=== PATIENT | male | born 1985 | race Hispanic/Latino ===

== ENCOUNTER → 2024-03-31 | Outpatient (CLI) | payer MEDICAID ==
--- NOTE | 2024-04-04 18:01 | HMCSR ---
APPROVED REPORT EXAM: Two-dimensional and M-mode echocardiogram with Doppler and color Doppler. INDICATION ICD: Z01.810 Encounter for pre-procedural cardiovascular exam 2D Dimensions RVDd4.3 cmLVEF(%)55.3 (>50%)LVED Vol(simp.)158.0 mL IVSd1.1 (0.7-1.1cm)FS(%)29 %LVES Vol(simp.)85.0 mL LVDd6.5 (3.8-5.6cm)Ao Root(2D)3.2 (2.0-3.7cm)LVEF(%, simp.)46 % PWd1.1 (0.7-1.1cm)LVOT diam2.4 (1.8-2.4cm)LA ESV INDEX (BP)39.98 mL/m2 LVDs4.6 (2.5-4.0cm)IVC diam2.2 cm Aortic Valve AoV Vmax1.7 m/Gael Peak GR12.2 mmHgLVOT Vmax1.0 m/s AoV VTI0.4 mAo Mean GR6.5 mmHgLVOT VTI0.23 m MARTÍNEZ (VMAX)2.4 cm2AVA (VTI) 2.4 cm2 Mitral Valve MV E Rzne664.4 cm/sDECEL Lozx660 ms MV A Vmax89.7 cm/sP 1/2 T42 ms E/A ratio1.3MVA (PHT)5.2 cm2 MR Max PG47 mmHg TDI E/E' Ptdzri64.1E/E' Bogxgmd74.5 Pulmonary Valve PV Vmax1.1 m/sPV VTI0.29 mPV Mean GR3 mmHg PV Peak GR5.0 mmHg Tricuspid Valve TR Vmax3.1 m/sRAP (EST) 8 qwOdAHOI96.7 mmHg TR Peak GR37.7 mmHg Left Ventricle The left ventricle is moderately dilated. There is borderline to mild concentric left ventricular hyp ertrophy. LVEF is 45-50%. Stage II, diastolic dysfunction. Right Ventricle The right ventricle is mildly dilated. The right ventricular systolic function is normal. Atria The left atrium is mildly dilated. The right atrium size is normal. Aortic Valve Aortic valve is trileaflet. Aortic valve leaflets are sclerotic but open well. Trace aortic regurgita tion. There is no aortic valvular stenosis. Mitral Valve Mitral valve leaflets are mildly sclerotic but open well. Mitral regurgitation is trace. There is no mitral valve stenosis. Tricuspid Valve The tricuspid valve leaflets appear normal. There is mild tricuspid regurgitation. Right ventricular systolic pressure is estimated at 40-50 mmHg. Pulmonic Valve The pulmonic valve leaflets are thin and pliable; valve motion is normal. Great Vessels The aortic root is normal in size. IVC is dilated and collapses >50% with inspiration. Pericardium No pericardial effusion. Conclusion The left ventricle is moderately dilated. LVEF is 45-50%. Stage II, diastolic dysfunction. The right ventricle is mildly dilated. The right ventricular systolic function is normal. The left atrium is mildly dilated. The right atrium size is normal. There is mild tricuspid regurgitation. Right ventricular systolic pressure is estimated at 40-50 mmHg. IVC is dilated and collapses >50% with inspiration. No pericardial effusion.
== END | disposition home or self-care (01) ==
LOC: SHCH 13:27
PROVIDERS: ATTEND Student in an Organized Health Care Education/Training Program
DX: Z01.810 Encounter for preprocedural cardiovascular examination (principal); I08.3 Combined rheumatic disorders of mitral, aortic and tricuspid valves
CPT/HCPCS: 93306